=== PATIENT | female | born 1940 | race Caucasian/White ===

== ENCOUNTER 2016-10-23 07:29 | Emergency (ER) | payer MEDICARE, OTHER ==
[~2016-10-23] VITALS: Ht 160 cm; Wt 88.5 kg
[~2016-10-23 07:29] MED LIST: ASCO500T9 PO; ATEN25TA PO; CALC600T12 PO; CHOL200014 PO; CRAN300T PO; CYAN250010 PO; LECI400C4 PO; MULT1CAP32 PO; OLOP5DRO BOTH EYES; OMEG1CAP79 PO; RANI150T7 PO; VITA400T9 PO
[2016-10-23 07:31] VITALS: Ht 160 cm; Wt 88.5 kg
--- NOTE | 2016-10-23 07:42 | NUR ---
PROVIDER DR. GOODMAN IN ROOM WITH PT.
--- OUTSIDE RECORDS SUMMARY | 2016-10-23 07:42 | XMS REPORT | Continuity of Care Document ---
Author Author [facility] LIVE Organization [facility] LIVE Address Unknown Phone Unavailable Support Name Relationship Address Phone TERRANCE LORENZANA MD Caregiver [address] [facility] [place] [phone] GEORGIA NELSON MD Caregiver [address] [place] [phone] AMBREEN GONZALES Next Of Kin [address] [place] [address] Insurance Providers Payer Name Policy Number Subscriber Name Relationship Medicare [id number] Melisa Gonzales 20 Self [employer] [id number] Melisa Gonzales 20 Self Advance Directives Directive Response Recorded Date/Time Advanced Directives Type DNR Documentation 03/22/14 1:45am Problems Medical Problems Problem Onset Date Status Chest discomfort Unknown Active Vertigo Unknown Active GERD (gastroesophageal reflux disease) Unknown Active Medications Medication Dose Route Sig Days/Qty Instructions Order Date Discontinued Date Status Cyanocobalamin 1,000 Mcg PO DAILY 09/05/09 09/12/10 Discontinued Calcium Carbonate 600 Mg PO DAILY 09/05/09 09/12/10 Discontinued Omeprazole 20 Mg PO BEFORE BREAKFAST Take 1 capsule, by mouth, one time a day (before 03/22/14 Active Atenolol 1 Tab PO DAILY 03/22/14 Active Social History Social History Problem Response Recorded Date/Time Smoking Status Never smoker 03/22/2014 2:30am Chewing Tobacco Status No 03/22/2014 2:30am Hx Substance Use No 03/22/2014 2:30am Hx Alcohol Use No 03/22/2014 2:30am Query Response Start Date Stop Date Smoking Status Unknown if ever smoked Hospital Discharge Instructions No hospital discharge instructions. Plan of Care No plan of care. Functional Status Query Response Date Recorded Physical Hygiene Self March 22, 2014 2:30am Disabilities Visual March 22, 2014 2:30am Devices Used Dentures Glasses March 22, 2014 2:30am Dressing Self March 22, 2014 2:30am Ambulation Self March 22, 2014 2:30am Diet Self March 22, 2014 2:30am Mental Status Alert March 22, 2014 3:10am Disabilities Visual March 22, 2014 2:30am Devices Used Dentures Glasses March 22, 2014 2:30am Physical Hygiene Self March 22, 2014 2:30am Dressing Self March 22, 2014 2:30am Ambulation Self March 22, 2014 2:30am Diet Self March 22, 2014 2:30am Allergies, Adverse Reactions, Alerts Allergen Type Severity Reaction Status Last Updated Penicillin Allergy Unknown Active 03/22/14 Cephalosporins Allergy Unknown Active 03/22/14 Sulfa (Sulfonamide Antibiotics) Allergy Unknown Active 03/22/14 Iodine Allergy Unknown Active 03/22/14 Immunizations Name Given Type Hx Influenza Vaccination Y fall 2012 Historical Hx Influenza Vaccination Y fall 2012 Historical Vital Signs Acute Vital Signs Vital Response Date/Time Temperature (Fahrenheit) 98.2 deg F (96.8 - 99.1) Temperature (Calculated Celsius) 36.32190 degrees C (36.0 - 37.3) Pulse Rate (adult) 88 bpm (60 - 100) Respiratory Rate 16 breaths/min (10 - 20) O2 Sat by Pulse Oximetry 96 % (90 - 100) Blood Pressure 124/59 mm Hg Height 5 ft 3 in Weight 209 lb Body Mass Index 37.0 kg/m^2 Results Test Source Date Result Interp. Ref. Range Comments Activated Partial Thromboplast Time March 22, 2014 2:05am 33.5 SEC N 24 -36 Alanine Aminotransferase (ALT/SGPT) March 22, 2014 2:05am 31 U/L N 9- 52 Albumin March 22, 2014 2:05am 3.9 G/DL N 3.5-5.0 Albumin/Globulin Ratio March 22, 2014 2:05am 1.3 RATIO N 1.1-2.2 Alkaline Phosphatase March 22, 2014 2:05am 103 U/L N 38-126 Anion Gap March 22, 2014 2:05am 12 MEQ/L N 5-15 Aspartate Amino Transf (AST/SGOT) March 22, 2014 2:05am 25 U/L N 14-36 BUN/Creatinine Ratio March 22, 2014 2:05am 24 RATIO N 6-26 Basophils # (Auto) March 22, 2014 2:05am 0.1 T/MM3 N 0-0.2 Basophils (%) (Auto) March 22, 2014 2:05am 0.6 % N 0-2 Blood Urea Nitrogen March 22, 2014 2:05am 26.0 MG/DL H 7-17 Calcium Level March 22, 2014 2:05am 9.2 MG/DL N 8.4-10.2 Calculated Osmolality March 22, 2014 2:05am 276 MOSM/KG N 261-280 Carbon Dioxide Level March 22, 2014 2:05am 26 MEQ/L N 22-30 Chloride Level March 22, 2014 2:05am 102 MEQ/L N 98-107 Clostridium Difficile Toxin A & B September 05, 2009 3:50am Positive - Has specimen been collected/obtained? Y Creatine Kinase MB May 10, 2013 1:39pm 0.8 NG/ML N 0-3.4 Creatinine March 22, 2014 2:05am 1.1 MG/DL N 0.7-1.2 Eosinophils # (Auto) March 22, 2014 2:05am 0.3 T/MM3 N 0-0.5 Eosinophils (%) (Auto) March 22, 2014 2:05am 2.7 % N 0-4 Giardia Antigen September 05, 2009 12:00pm Ref lab rpt scanned - --- 09/08/09 1409 ---GIARD previously reported as: SENT OUT Globulin March 22, 2014 2:05am 3.1 G/DL N 2.4-3.6 Glucose Level March 22, 2014 2:05am 133 MG/DL H 65-110 Hematocrit March 22, 2014 2:05am 40.2 % N 36-46 Hemoglobin March 22, 2014 2:05am 13.3 GM/DL N 12-16 Influenza Type A Antigen September 12, 2010 10:05am Negative - Negative for Flu A protein antigen. Assay sensitivity isbetween 65-83%. A negative result does not exclude influenza virus infection. "Influenza FA" may be ordered if clinical presentation warrants confirmatory testing. Influenza Type B Antigen September 12, 2010 10:05am Negative - Negative for Flu B protein antigen. Assay sensitivity isbetween 65-83%. A negative result does not exclude influenza virus infection. "Influenza FA" may be ordered if clinical presentation warrants confirmatory testing. Lipase May 09, 2013 11:40pm 115 U/L N 23-300 Lymphocytes # (Auto) March 22, 2014 2:05am 3.1 T/MM3 N 1-4.8 Lymphocytes (%) (Auto) March 22, 2014 2:05am 32.5 % N 23-45 Magnesium Level March 22, 2014 2:05am 1.7 MG/DL N 1.6-2.3 Mean Corpuscular Hemoglobin March 22, 2014 2:05am 28.7 UUG N 26-34 Mean Corpuscular Hemoglobin Concent March 22, 2014 2:05am 33.1 GM/DL N 31-37 Mean Corpuscular Volume March 22, 2014 2:05am 86.6 UM3 N 80-100 Mean Platelet Volume March 22, 2014 2:05am 9.3 UM3 L 9.4-12.4 Monocytes # (Auto) March 22, 2014 2:05am 0.8 T/MM3 N 0-0.8 Monocytes (%) (Auto) March 22, 2014 2:05am 7.9 % N 0-9.0 Neutrophils # (Auto) March 22, 2014 2:05am 5.4 T/MM3 N 1.8-7.7 Neutrophils (%) (Auto) March 22, 2014 2:05am 56.1 % N 33-66 Ova and Parasites (LAB) September 05, 2009 12:00pm Ref lab rpt scanned - --- 09/08/09 1409 ---OAP previously reported as: SENT OUT Platelet Count March 22, 2014 2:05am 245 T/MM3 N 130-400 Potassium Level March 22, 2014 2:05am 4.1 MEQ/L N 3.6-5 Prothromb Time International Ratio March 22, 2014 2:05am 0.97 N 0.81- 1.09 THERAPUTIC RANGE=2.00-3.00 FOR ANTI-THROMBOSIS THERAPUTIC RANGE=2.50- 3.50 FOR IMPLANTED VALVE RDW Standard Deviation March 22, 2014 2:05am 41.8 FL N 36.9-50.2 Red Blood Count March 22, 2014 2:05am 4.64 M/MM3 N 4.00-5.20 Sodium Level March 22, 2014 2:05am 140 MEQ/L N 134-144 Stool for White Cells September 05, 2009 3:50am Positive - Has specimen been collected/obtained? Y Tests Not Done September 05, 2009 3:00am Not done - Has specimen been collected/obtained? Y Thyroid Stimulating Hormone (TSH) March 22, 2014 2:05am 2.61 MIU/L N 0.47-4.68 Total Bilirubin March 22, 2014 2:05am 1.10 MG/DL N 0.20-1.30 Total Creatine Kinase May 10, 2013 1:39pm 80 U/L N 30-135 Total Protein March 22, 2014 2:05am 7.0 G/DL N 6.3-8.2 Troponin I March 22, 2014 2:05am < 0.012 ng/ml 0-0.12 Urine Bacteria January 07, 2009 9:10am Trace - Urine Bilirubin March 03, 2012 10:30am Negative - Urine Blood March 03, 2012 10:30am Negative - Urine Collection Type March 03, 2012 10:30am Voided - Urine Color March 03, 2012 10:30am Yellow - Urine Glucose (UA) March 03, 2012 10:30am Negative - Urine Ketones March 03, 2012 10:30am Negative - Urine Leukocyte Esterase March 03, 2012 10:30am Negative - Urine Nitrite March 03, 2012 10:30am Negative - Urine Protein March 03, 2012 10:30am Negative - Urine RBC March 03, 2012 10:30am None seen /HPF - Urine Specific Walker March 03, 2012 10:30am 1.005 L - Urine Squamous Epithelial Cells January 07, 2009 9:10am Moderate - Urine Turbidity March 03, 2012 10:30am Clear - Urine Urobilinogen March 03, 2012 10:30am Normal EU/DL - Urine WBC March 03, 2012 10:30am 0-1 /HPF - Urine pH March 03, 2012 10:30am 6.5 - White Blood Count March 22, 2014 2:05am 9.6 T/MM3 N 4.5-11.0 Chemistry Specimen Hemolysis March 22, 2014 2:05am < 15 0-25 0-25: No Hemolysis.26-70: Slight Hemolysis - can falsely elevate K and Urine Protein. 71-285: Moderate Hemolysis - can falsely elevate K, Troponin I, CA 19-9, PTH, CSF GLucose, and Urine Protein, and can falsely decrease Phenytoin. 286-999: Gross Hemolysis - can falsely elevate K, Troponin I, CA 19-9, PTH, CSF Glucose, and Urine Protine, and can falsely decrease Phenytoin. Recommend specimen recollection. Lab Scanned Report May 10, 2013 6:43pm LAB TEST FORM REQUEST [id number] - Turbidity March 22, 2014 2:05am < 20 0-20 Glomerular Filtration Rate Calc March 22, 2014 2:05am 49 - Immature Granulocyte # (Auto) March 22, 2014 2:05am 0.02 T/MM3 N 0.00- 0.03 Immature Granulocyte % (Auto) March 22, 2014 2:05am 0.2 % N 0.0-0.5 Icterus Index March 22, 2014 2:05am < 2 0-7 TR-Kiw-X-Type Natriuretic Peptide March 22, 2014 2:05am 63 PG/ML N 0- 175 Rule in cut points: <50 years old=450; 50-75 years old=900; >75 years old=1800; When utilizing ProBNP rule-in cut points, adjustment for impaired renal function is typically not required. Urine Microscopic Not Indicated May 31, 2011 4:40pm Not indicated - Stool Culture Stool September 05, 2009 3:50am Procedures No known history of procedures. Encounters Encounter Location Date/Time Departed Emergency Room [facility] 03/22/14 1:43am Recent Diagnosis
--- OUTSIDE RECORDS SUMMARY | 2016-10-23 07:42 | XMS REPORT | Continuity of Care Document ---
Author Author Trish Hong Trish Address Unknown Phone Unavailable Care Team Providers Care Correctional Guard Name Role Phone [employer] Unavailable Unavailable Problems Medications Allergies, Adverse Reactions, Alerts Immunizations Results Vital Signs Encounters Procedures Plan of Care Social History Assessment and Plan Family History Value Date Source Advance Directives Order Name Results Value Date Source
--- NOTE | 2016-10-23 07:55 | NUR ---
LAB LAB IN ROOM WITH PT.
--- NOTE | 2016-10-23 08:00 | NUR ---
CT PT TO CT.
[2016-10-23 08:01] LABS: BASOPHILS % (AUTO) 0.5 % (0-2); EOSINOPHILS # (AUTO) 0.2 T/MM3 (0-0.5); HCT - HEMATOCRIT 39.6 % (36-46); HGB - HEMOGLOBIN 12.9 GM/DL (12-16); LYMPHOCYTES # (AUTO) 1.7 T/MM3 (1-4.8); LYMPHOCYTES % (AUTO) 22.8 % (23-45); MEAN CORPUSCULAR HGB 29.3 UUG (26-34); MEAN CORPUSCULAR HGB CONC(MCHC 32.6 GM/DL (31-37); MEAN PLATELET VOLUME 9.1 UM3 (9.4-12.4); MONOCYTES # (AUTO) 0.6 T/MM3 (0-0.8); MONOCYTES % (AUTO) 7.8 % (0-9.0); NEUTROPHILS #(AUTO)-ABSOLUTE 4.8 T/MM3 (1.8-7.7); NEUTROPHILS % (AUTO) 65.9 % (33-66); WBC - WHITE BLOOD COUNT 7.3 T/MM3 (4.5-11.0)
[2016-10-23 08:02] LABS: BLOOD, URINE NEGATIVE (NEGATIVE); COLOR,URINE YELLOW (YELLOW); LEUKOCYTE ESTERASE ,URINE NEGATIVE (NEGATIVE); NITRITE,URINE NEGATIVE (NEGATIVE); UROBILINOGEN,URINE 0.2 EU/DL (NORMAL)
[2016-10-23 08:10] LABS: ALBUMIN 3.6 G/DL (3.5-5.0); ALBUMIN/GLOBULIN RATIO 1.1 RATIO (1.1-2.2); ALKALINE PHOSPHATASE 71 U/L (38-126); ALT (SGPT) 32 U/L (9-52); ANION GAP 10 MEQ/L (5-15); AST (SGOT) 24 U/L (14-36); BUN/CREATININE RATIO 28 RATIO (6-26); CALCIUM 9.1 MG/DL (8.4-10.2); CHLORIDE 105 MEQ/L (98-107); CO2 - CARBON DIOXIDE 28 MEQ/L (22-30); CREATININE 0.9 MG/DL (0.7-1.2); GLOMERULAR FILTRATION RATE 61; GLUCOSE 121 MG/DL (65-110); LIPASE 96 U/L (23-300); POTASSIUM 4.6 MEQ/L (3.6-5); SODIUM 143 MEQ/L (134-144); TOTAL PROTEIN 6.9 G/DL (6.3-8.2)
--- NOTE | 2016-10-23 08:16 | NUR ---
RADIOLOGY PT FROM RADIOLOGY PER CART
--- NOTE | 2016-10-23 08:23 | ERPDOC ---
Departure Disposition Decision Date: Oct 23, 2016 Disposition Decision Time: 08:49 Disposition: 01 DISCHARGED HOME, SELF-CARE Impression Impression Impression: Primary Impression: Sciatica Laterality: left Qualified Codes: M54.32 - Sciatica, left side Severity: Mild Condition: Improved Seen By: Physician only Referrals: NATALIYA ROY MD (Family) 2 Days Patient Instructions: Sciatica (ED) Problems/Meds/Labs Reviewed?: Yes Medications reviewed and manag: Yes Follow up care ordered?: Yes Mental Status: Alert, Oriented Scripts Cyclobenzaprine HCl (Cyclobenzaprine HCl) 10 Mg Tablet 5 MG PO TID Y for MUSCLE SPASM for 5 Days, #15 TAB 0 Refills Prov: NATO GOODMAN DO 10/23/16 Hydrocodone/Acetaminophen (Granville 5-325 Tablet) 5-325 Tablet 1 TAB PO Q4HR Y for PAIN for 3 Days, #18 TAB 0 Refills Prov: NATO GOODMAN DO 10/23/16 HPI - Back Pain General Chief Complaint: Low Back Pain or Injury Stated Complaint: LEFT SIDE ABD PAIN ( PT ONLY HAS ONE KIDNEY) Time Seen by Provider: 07:35 Source: patient Exam Limitations: no limitations HPI - Back Pain Initial Comments 75-year-old female presents to the emergency department with a chief complaint of left lower back pain. Patient has been lifting moving boxes and lifting her who is disabled for the past month. Patient noted onset of pain one week ago. Symptoms have been gradual in nature since onset. Pain is sharp. Pain is moderate. Pain radiates down the patient's left leg. Patient denies any other injury or trauma. Patient was at home when her symptoms began. Symptoms have been persistent in nature since onset. No other complaints or associated symptoms. Pain is easily reproducible with movement and improves with rest and positioning. Patient denies any numbness, tingling, fever, chills, saddle anesthesia, anticoagulation, loss of bowel or bladder control, abdominal pain, recent procedures on the back, IV drug abuse, focal weakness or other warning signs of back pain. Occurred At: home Onset/Timing: Gradual Allergies: Coded Allergies: Cephalosporins (Verified Allergy, Unknown, 10/23/16) Penicillins (Verified Allergy, Unknown, 10/23/16) Sulfa (Sulfonamide Antibiotics) (Verified Allergy, Unknown, 10/23/16) iodine (Verified Allergy, Unknown, 10/23/16) hydromorphone (Verified Adverse Reaction, Unknown, loopy, 10/23/16) Past History Past Medical History Metabolic: cancer, hypertension Cardiac: CAD, FL GI: GERD, ulcers Musculoskeletal: osteoarthritis Surgical History General: appendix, gallbladder, other Cardiac: cardiac cath Reproductive/: hysterectomy Family History Family History: Negative Vaccines Hx Influenza Vaccination: Yes (fall 2012) Social History Smoking Status: Never smoker Substance Use Type: does not use Alcohol Intake: none Sexuality: male partner Review of Systems Constitutional Constitutional: DENIES: chills, fever Eyes General: DENIES: erythema, exudate Lids/Accessories: DENIES: erythema, swelling Vision: DENIES: acuity, blurring ENMT Ears: DENIES: drainage, pain Hearing: DENIES: hearing loss Balance: DENIES: ataxia, falling to one side Sinuses: DENIES: congestion, pain Nose: DENIES: nosebleeds, pain Mouth/Throat: DENIES: painful swallowing, sore throat Teeth: DENIES: pain Jaw: DENIES: pain Cardiovascular Cardiac: DENIES: chest pain, dyspnea on exertion Rhythm/Rate: DENIES: irregular beat, palpitations Vascular: DENIES: pedal edema, unilateral swelling Pulmonary Respiratory: DENIES: cough, dyspnea, pleuritic chest pain, sputum GI Upper Abdomen: DENIES: nausea, pain, vomiting Lower Abdomen: DENIES: diarrhea, pain General: DENIES: dysuria, pain Musculoskeletal General: tenderness, DENIES: joint pain Integumentary Skin: DENIES: itching, rash Neurological General: DENIES: headache, numbness, weakness Psychiatric Psychiatric: DENIES: emotional instability, suicidal ideation/attempt Endocrine Endocrine: DENIES: polydipsia, polyphagia Hematologic/Lymphatic Hematologic/Lymphatic: DENIES: frequent nosebleeds, lymphadenopathy Allergic/Immunological Allergic/Immunoligical: DENIES: allergic reactions, hives Physical Exam General General Nourishment: well nourished, well developed, appears stated age, no acute distress, adult General Body Habitus: well groomed Vitals and Pain First Documented Vital Signs Date Time Temp Pulse Resp B/P Pulse Ox O2 Delivery O2 Flow Rate FiO2 10/23/16 07:31 98.1 87 14 153/60 95 Room Air Weight: Kilograms: 88.500 Height (feet): 5 Height (inches): 3.00 Triage Pain Scale: RN VS reviewed by Provider: Yes Normal Exams: Head: Normocephalic w/o trauma Eyes: Pupils are PERRLA w/ EOMI, No scleral icterus, irritation, or foreign bodies noted ENMT: No facial trauma, nasal exudates, pharyngeal erythema, or exudates are noted Dental: No fractured, loose, or missing teeth noted Neck: Full range of motion, without adenopathy, JVD, bruits or thyromegaly Chest/Resp: Clear all durpee, with good airflow, and symmetry bilaterally CV: Regular rate and rhythm, without murmur or gallop, Pulses 2+ all extremities, capillary refill, <2 seconds all ext., no pedal edema noted Abdomen: Bowel sounds positive, soft, non-tender, non-distended, no hepatosplenomegaly, masses or bruits noted Lymphatic: No lymphadenopathy, or lymphedema noted Musculoskeletal: No tenderness, or deformity noted, good range of motion, all extremities Integumentary: No rashes, hives, or bruising noted, hair and nails, without abnormality Neurologic: Patient is alert, and oriented, cranial nerves, motor/sensory/ cerebellar, exams w/o gross deficits, to observation Psychiatric: Patient exhibits, appropriate attention, emotion and affect Musculoskeletal (brief) Comments Back - full range of motion. No midline tenderness or deformity. Positive tender to palpation over the left SI Joint. Neurologic (brief) Comments Alert and oriented x 4. CN 2-12 intact. Sensation intact. Strength normal. Normal motor. Normal gait. Normal coordination. Normal speech. Absent Babinski bilaterally. Reflexes 2/4 in all extremities. No focal neurologic deficits Differential Diagnoses Considering: Fracture, Lumbar Sprain, Lumbar Strain, Other (sciatica) Progress Results/Orders Orders Procedure Category Date Status Time Cbc W/Auto LAB 10/23/16 Complete Diff-Reflex Manual Cmp - Comprehensive LAB 10/23/16 Complete Metabolic Lipase LAB 10/23/16 Complete Ua, Dip Wreflex LAB 10/23/16 Complete Microsc & Recruiter Manager 07:48 Ct Renal W/O Contrast CT 10/23/16 Taken 07:48 Hydrocodone/Acetaminophen PHA 10/23/16 Complete (Granville 5/325) 09:00 Lab Results Laboratory Tests Test 10/23/16 07:57 White Blood Count 7.3T/MM3 Red Blood Count 4.40M/MM3 Hemoglobin 12.9GM/DL Hematocrit 39.6% Mean Corpuscular Volume 90.0UM3 Mean Corpuscular Hemoglobin 29.3UUG Mean Corpuscular Hemoglobin Concent 32.6GM/DL RDW Standard Deviation 43.2FL Platelet Count 207T/MM3 Mean Platelet Volume 9.1UM3 Immature Granulocyte % (Auto) 0.0% Neutrophils (%) (Auto) 65.9% Lymphocytes (%) (Auto) 22.8% Monocytes (%) (Auto) 7.8% Eosinophils (%) (Auto) 3.0% Basophils (%) (Auto) 0.5% Absolute Immature Granulocyte (auto 0.00T/MM3 Absolute Neutrophils (auto) 4.8T/MM3 Absolute Lymphocytes (auto) 1.7T/MM3 Absolute Monocytes (auto) 0.6T/MM3 Absolute Eosinophils (auto) 0.2T/MM3 Absolute Basophils (auto) 0.0T/MM3 Urine Collection Type Cleancatch-midstream Urine Color Yellow Urine Turbidity Clear Urine pH 6.0 Urine Specific Whitman 1.010 Urine Protein Negative Urine Glucose (UA) Negative Urine Ketones Negative Urine Blood Negative Urine Nitrite Negative Urine Bilirubin Negative Urine Urobilinogen 0.2EU/DL Urine Leukocyte Esterase Negative Urinalysis Comment Microscopic not ind. Turbidity < 20 Sodium Level 143MEQ/L Potassium Level 4.6MEQ/L Chloride Level 105MEQ/L Carbon Dioxide Level 28MEQ/L Anion Gap 10MEQ/L Blood Urea Nitrogen 25.0MG/DL Creatinine 0.9MG/DL Glomerular Filtration Rate Calc 61 BUN/Creatinine Ratio 28RATIO Glucose Level 121MG/DL Calculated Osmolality 280MOSM/KG Calcium Level 9.1MG/DL Total Bilirubin 0.80MG/DL Icterus Index < 2 Aspartate Amino Transf (AST/SGOT) 24U/L Alanine Aminotransferase (ALT/SGPT) 32U/L Alkaline Phosphatase 71U/L Total Protein 6.9G/DL Albumin 3.6G/DL Globulin 3.3G/DL Albumin/Globulin Ratio 1.1RATIO Lipase 96U/L Chemistry Specimen Hemolysis < 15 Medications Current ED Medications Acetaminophen/ Hydrocodone Bitart ([place] 5/325) 1 tab O ONCE PO Last administered on 10/23/16t 08:56; Start 10/23/16 at 09:00; Stop 10/23/16 at 09:02 ; Status DC Progress Progress Labs/imaging were discussed in detail with the patient and questions are answered. Patient declines offered IV hydration in the emergency department stating that she would prefer to encourage by mouth intake of water at home. Patient is given analgesic pain medication with improvement of symptoms in the emergency Department. Patient is discharged home in improved condition. Patient is to follow up as instructed. Patient is to return to the emergency Department if her condition worsens or changes in any manner. Patient is in agreement with the current plan of management. Patient's to follow-up as instructed. Prescriptions for 5 mg of Granville and 5 mg of Flexeril are provided. Steroids and nonsteroidal anti-inflammatories are avoided due to the patient' s history of 1 kidney. EKG EKG : Interpreted by: signing physician EKG Comments EKG - declined by patient. CT CT : CT: Abd/Pelvis no contrast Interpretation: Normal (mild left hydronephrosis without significant left hydroureter or calculus. Unremarkable bony structures except for degenerative changes. No acute processes.), Faxed Report NATO GOODMAN DO Oct 23, 2016 08:22 NATO GOODMAN DO Oct 23, 2016 08:22
[2016-10-23] MEDS ORDERED: CYCL-375 PO (08:51)
[2016-10-23] MEDS ORDERED: HYDR-4246 PO (08:51)
[2016-10-23 09:00] VITALS: BP 156/68; PULSE 68; RESP 17; TEMP 97.8; O2SAT 97
[2016-10-23] MEDS ORDERED: HYDROCODONE/APAP 5 mg/325 mg TABLET PO ONE (09:00)
--- NOTE | 2016-10-24 09:53 | DI ---
Indication: ITS.REASON: L sided low back pain, hx nephrectomy PROCEDURE: CT RENAL W/O CONTRAST: Encounter: Initial Comparison: Renal ultrasound dated May 27, 2015 Technique: Axial CT images were performed through the abdomen and pelvis without intravenous contrast. Coronal and sagittal two-dimensional reformats. Automated Exposure Control and Iterative Reconstruction dose reducing techniques were utilized. Findings: Mild atelectasis or scarring in the lung bases. The unenhanced liver is unremarkable. Gallbladder is surgically absent. The spleen, pancreas and adrenal glands are within normal limits. Right kidney is surgically absent. Left kidney shows moderate hydronephrosis without evidence of obstructing renal or ureteral stone. Bladder is normal. Uterus is absent. No free fluid or bowel obstruction. Colonic diverticulosis without evidence of acute diverticulitis. Bone windows show degenerative change and scoliosis in the spine. Impression: New moderate left hydronephrosis with a solitary kidney. Urologic consultation is recommended. There is a preliminary report by [facility]. .
== END 2016-10-23 09:00 | disposition home or self-care (01) ==
LOC: ED 07:29
DX: M54.42 Lumbago with sciatica, left side (principal)
CPT/HCPCS: 36415; 74176; 80053; 81003; 83690; 85025; 99284; A9270

== ENCOUNTER 2016-12-17 19:37 | Emergency (ER) | payer MEDICARE, OTHER ==
[~2016-12-17] VITALS: Ht 160 cm; Wt 82.8 kg
[~2016-12-17 19:37] MED LIST changes: +CYCL-375 PO; +HYDR-4246 PO
[2016-12-17 19:40] VITALS: Ht 160 cm; Wt 82.8 kg
--- OUTSIDE RECORDS SUMMARY | 2016-12-17 19:40 | XMS REPORT | Continuity of Care Document ---
Author Author [facility] LIVE Organization [facility] LIVE Address Unknown Phone Unavailable Support Name Relationship Address Phone TERRANCE LORENZANA MD Caregiver [address] [place] [phone] GEORGIA NELSON MD Caregiver [address] [place] [phone] AMBREEN GONZALES Next Of Kin [address] [place] [address] Insurance Providers Payer Name Policy Number Subscriber Name Relationship Medicare [id number] Melsia Gonzales 20 Self [facility] Ret[employer] [id number] Melisa Gonzales 20 Self Advance Directives Directive [...] F (96.8 - 99.1) Temperature (Calculated Celsius) 36.94667 degrees C (36.0 - 37.3) Pulse Rate [...] 10:30am None seen /HPF - Urine Specific [place] March 03, 2012 10:30am 1.005 L - [...] 10, 2013 6:43pm LAB TEST FORM REQUEST [id number] - Turbidity March 22, 2014 2:05am < 20 0-20 Glomerular Filtration Rate Calc March 22, 2014 2:05am 49 - Immature Granulocyte # (Auto) March 22, 2014 2:05am 0.02 T/MM3 N 0.00- 0.03 Immature Granulocyte % (Auto) March 22, 2014 2:05am 0.2 % N 0.0-0.5 Icterus Index March 22, 2014 2:05am < 2 0-7 IQ-Qxo-B-Type Natriuretic Peptide March 22, 2014 2:05am 63 [...] Encounters Encounter Location Date/Time Departed Emergency Room [facility] 03/22/14 1:43am Recent Diagnosis
--- OUTSIDE RECORDS SUMMARY | 2016-12-17 19:40 | XMS REPORT | Continuity of Care Document ---
Author Author Trish Hong Trish Address Unknown Phone Unavailable Care Team Providers Care Roving Tester Laboratory Name Role Phone [employer] Unavailable Unavailable Problems Medications Allergies, Adverse Reactions, Alerts Immunizations Results Vital Signs Encounters Procedures Plan of Care Social History Assessment and Plan Family History Value Date Source Advance Directives Order Name Results Value Date Source
--- OUTSIDE RECORDS SUMMARY | 2016-12-17 19:40 | XMS REPORT | Continuity of Care Document ---
Author Author [facility] Organization [facility] Address Unknown Phone Unavailable Support Name Relationship Address Phone NATALIYA ROY MD Caregiver [address] [address] Unavailable NATO GOODMAN DO Caregiver [address] [place] [address] Unavailable AMBREEN GONZALES Next Of Kin [address] [place] [address] Insurance Providers Guarantor Melisa Gonzales Address [address] [place] [address] Email [email or web address] Payer Medicare Policy Number [id number] Subscriber's Name Melisa Gonzales Relationship 18 Self Effective Date 07 [facility] [employer] Policy Number [id number] Subscriber's Name Melisa Gonzales Relationship 18 Self Group Number [id number] Advance Directives Directive Response Recorded Date/Time Advanced Directives Type None 10/23/16 7:31am Chief Complaint and Reason for Visit Chief Complaint Low Back Pain or Injury Reason for Visit Sciatica Problems Active Problems Medical Problem Onset Date Status Chest discomfort Unknown Acute GERD (gastroesophageal reflux disease) Unknown Acute GERD (gastroesophageal reflux disease) Unknown Acute Vertigo Unknown Acute Visual distortion Unknown Acute Past Problems Medical Problem Onset Date Sciatica Unknown Medications Current Home Medications Medication Dose Units Route Directions Days Qty Instructions Start Date Ascorbic Acid (Vitamin C) 500 Mg Tablet 1 Tab Oral Daily 05/13/15 Atenolol 25 Mg Tablet 1 Tab Oral Daily 03/22/14 Calcium Carbonate (Calcium) 600 Mg Tablet 1 Tab Oral Twice A Day 05/13/15 Cholecalciferol (Vitamin D3) (Vitamin D3) 2,000 Unit Tablet 1 Tab Oral Daily 05/13/15 Cranberry Extract (Cranberry) 300 Mg Tablet 1 Tab Oral Daily Cyanocobalamin (Vitamin B-12) (Vitamin B12) 2,500 Mcg Tablet 2 Tab Oral Daily 05/13/15 Cyclobenzaprine Hcl 10 Mg Tablet 5 Mg Oral Three Times A Day as needed for Muscle Spasm 5 Days 15 Tablet 10/23/16 Hydrocodone/Acetaminophen ([place] 5-325 Tablet) 5-325 Tablet 1 Tab Oral Every 4 Hours as needed for Pain 3 Days 18 Tablet 10/23/16 Lecithin, Soy (Lecithin) 400 Mg Capsule 1 Cap Oral Daily 05/13/15 Multivitamin (Multivitamins) 1 Each Capsule 1 Cap Oral Daily Olopatadine Hcl (Patanol) 50 Drop/5 Ml Drops 1 Drop Both Eyes As Needed as needed for Red Eyes 05/13/15 [place]-3/Dha/Epa/Fish Oil (Fish Oil 1,000 Mg Softgel) 1 Each Capsule 1 Cap Oral Twice A Week 1 05/13/15 Ranitidine Hcl 150 Mg Tablet 1 Tab Oral Bedtime 05/13/15 Vitamin E Mixed (Vitamin E) 400 Unit Tablet 1 Tab Oral Weekly Past Home Medications Medication Directions Ordered Status Calcium Carbonate (Calcium) 600 Mg Tablet, 600 Mg Oral Daily 09/05/09 Discontinued Cyanocobalamin (Vitamin B-12) 1,000 Mcg Lozenge, 1000 Mcg Oral Daily Discontinued Social History Social History Problem Response Recorded Date/Time Onset Date Status Chewing Tobacco Status No 10/23/2016 7:49am Not Applicable Not Applicable Hx Substance Use No 10/23/2016 7:49am Not Applicable Not Applicable Hx Alcohol Use No 10/23/2016 7:49am Not Applicable Not Applicable Tobacco Usage none 03/25/2014 10:02am Not Applicable Not Applicable Query Response Start Date Stop Date Smoking Status Current every day smoker Hospital Discharge Instructions No hospital discharge instructions. Plan of Care Discharge Date 10/23/16 9:00am Disposition 01 DISCHARGED HOME, SELF-CARE Condition at Discharge Improved Instructions/Education Provided Sciatica (ED) Prescriptions See Medication Section Referrals NATALIYA ROY MD Order Date: 2 Days Address: [address] [place] [address] [place] [address] Note: Care Plan and Goals Physician Care Plan Problem: Sciatica Goal: Follow up with primary care provider Instructions: Take medications and follow care plan as discussed/written Functional Status No functional status results. Allergies, Adverse Reactions, Alerts Allergen Type Severity Reaction Status Last Updated Penicillin Allergy Unknown Active 10/23/16 Cephalosporins Allergy Unknown Active 10/23/16 Sulfa (Sulfonamide Antibiotics) Allergy Unknown Active 10/23/16 Iodine Allergy Unknown Active 10/23/16 Hydromorphone Adverse Reaction Unknown loopy Active 10/23/16 Immunizations Query Response on File Recorded Date/Time Hx Influenza Vaccination Y fall 201203/22/14 2:30am Hx Influenza Vaccination Y fall 201203/22/14 2:30am Influenza Vaccine Hx 201510/23/16 7:49am Pneumococcal PCV13 Vaccine Hx 03/24/15 05/13/15 11:30am Vital Signs Acute Vital Signs Vital Response Date/Time Temperature (Fahrenheit) 97.8 deg F (96.8 - 99.1) 10/23/2016 9:00am Temperature (Calculated Celsius) 36.25821 degrees C (36.0 - 37.3) 10/23/2016 9:00am Pulse Rate (adult) 68 bpm (60 - 100) 10/23/2016 9:00am Respiratory Rate 17 breaths/min (10 - 20) 10/23/2016 9:00am O2 Sat by Pulse Oximetry 97 % (90 - 100) 10/23/2016 9:00am Blood Pressure 156/68 mm Hg 10/23/2016 9:00am Height (Feet) 5 feet 10/23/2016 7:31am Height (Inches) 3.00 inches 10/23/2016 7:31am Weight (Kilograms) 88.500 kg 10/23/2016 7:31am Body Mass Index (BMI) 34.0 10/23/2016 7:31am Results Laboratory Results Test Name Result Units Flags Reference Collection Date/Time Result Date/ Time Comments White Blood Count 7.3 T/MM3 4.5-11.0 10/23/2016 7:57am 10/23/2016 8: 01am Red Blood Count 4.40 M/MM3 4.00-5.20 10/23/2016 7:57am 10/23/2016 8: 01am Hemoglobin 12.9 GM/DL 12-16 10/23/2016 7:57am 10/23/2016 8:01am Hematocrit 39.6 % 36-46 10/23/2016 7:57am 10/23/2016 8:01am Mean Corpuscular Volume 90.0 UM3 80-100 10/23/2016 7:57am 10/23/2016 8: 01am Mean Corpuscular Hemoglobin 29.3 UUG 26-34 10/23/2016 7:57am 2016 8:01am Mean Corpuscular Hemoglobin Concent 32.6 GM/DL 31-37 10/23/2016 7:57am 10/23/2016 8:01am RDW Standard Deviation 43.2 FL 36.9-50.2 10/23/2016 7:57am 10/23/2016 8 :01am Platelet Count 207 T/MM3 130-400 10/23/2016 7:57am 10/23/2016 8:01am Mean Platelet Volume 9.1 UM3 L 9.4-12.4 10/23/2016 7:57am 10/23/2016 8: 01am Neutrophils (%) (Auto) 65.9 % 33-66 10/23/2016 7:57am 10/23/2016 8: 01am Lymphocytes (%) (Auto) 22.8 % L 23-45 10/23/2016 7:57am 10/23/2016 8: 01am Monocytes (%) (Auto) 7.8 % 0-9.0 10/23/2016 7:57am 10/23/2016 8:01am Eosinophils (%) (Auto) 3.0 % 0-4 10/23/2016 7:57am 10/23/2016 8:01am Basophils (%) (Auto) 0.5 % 0-2 10/23/2016 7:57am 10/23/2016 8:01am Immature Granulocyte % (Auto) 0.0 % 0.0-0.5 10/23/2016 7:57am 2016 8:01am Absolute Neutrophils (auto) 4.8 T/MM3 1.8-7.7 10/23/2016 7:57am 2016 8:01am Absolute Lymphocytes (auto) 1.7 T/MM3 1-4.8 10/23/2016 7:57am 2016 8:01am Absolute Monocytes (auto) 0.6 T/MM3 0-0.8 10/23/2016 7:57am 10/23/2016 8:01am Absolute Eosinophils (auto) 0.2 T/MM3 0-0.5 10/23/2016 7:57am 2016 8:01am Absolute Basophils (auto) 0.0 T/MM3 0-0.2 10/23/2016 7:57am 10/23/2016 8:01am Absolute Immature Granulocyte (auto 0.00 T/MM3 0.00-0.03 10/23/2016 7: 57am 10/23/2016 8:01am Icterus Index < 2 0-7 10/23/2016 7:57am 10/23/2016 8:10am Chemistry Specimen Hemolysis < 15 0-25 10/23/2016 7:57am 10/23/2016 8 :10am 0-25: Specimen Exhibited No Hemolysis. Turbidity < 20 0-20 10/23/2016 7:57am 10/23/2016 8:10am Sodium Level 143 MEQ/L 134-144 10/23/2016 7:57am 10/23/2016 8:10am Potassium Level 4.6 MEQ/L 3.6-5 10/23/2016 7:57am 10/23/2016 8:10am Chloride Level 105 MEQ/L 98-107 10/23/2016 7:57am 10/23/2016 8:10am Carbon Dioxide Level 28 MEQ/L 22-30 10/23/2016 7:57am 10/23/2016 8: 10am Anion Gap 10 MEQ/L 5-15 10/23/2016 7:57am 10/23/2016 8:10am Blood Urea Nitrogen 25.0 MG/DL H 7-17 10/23/2016 7:57am 10/23/2016 8: 10am Creatinine 0.9 MG/DL 0.7-1.2 10/23/2016 7:57am 10/23/2016 8:10am BUN/Creatinine Ratio 28 RATIO H 6-10/23/2016 7:57am 10/23/2016 8: 10am Glomerular Filtration Rate Calc 61 10/23/2016 7:57am 10/23/2016 8: 10am Glucose Level 121 MG/DL H 65-110 10/23/2016 7:57am 10/23/2016 8:10am Calculated Osmolality 280 MOSM/KG 261-280 10/23/2016 7:57am 10/23/2016 8:10am Calcium Level 9.1 MG/DL 8.4-10.2 10/23/2016 7:57am 10/23/2016 8:10am Total Bilirubin 0.80 MG/DL 0.20-1.30 10/23/2016 7:57am 10/23/2016 8: 10am Alkaline Phosphatase 71 U/L 38-126 10/23/2016 7:57am 10/23/2016 8:10am Total Protein 6.9 G/DL 6.3-8.2 10/23/2016 7:57am 10/23/2016 8:10am Albumin 3.6 G/DL 3.5-5.0 10/23/2016 7:57am 10/23/2016 8:10am Globulin 3.3 G/DL 2.4-3.6 10/23/2016 7:57am 10/23/2016 8:10am Albumin/Globulin Ratio 1.1 RATIO 1.1-2.2 10/23/2016 7:57am 10/23/2016 8 :10am Aspartate Amino Transf (AST/SGOT) 24 U/L 14-36 10/23/2016 7:57am 2016 8:10am Alanine Aminotransferase (ALT/SGPT) 32 U/L 9-52 10/23/2016 7:57am 10/23 8:10am Lipase 96 U/L 23-300 10/23/2016 7:57am 10/23/2016 8:10am Urine Collection Type CLEANCATCH-MIDSTREAM 10/23/2016 7:57am 2016 8:02am Urine Color YELLOW YELLOW 10/23/2016 7:57am 10/23/2016 8:02am Urine Turbidity CLEAR CLEAR 10/23/2016 7:57am 10/23/2016 8:02am Urine Specific [place] 1.010 L 1.015-1.025 10/23/2016 7:57am 2016 8:02am Urine pH 6.0 5.0-8.0 10/23/2016 7:57am 10/23/2016 8:02am Urine Leukocyte Esterase NEGATIVE NEGATIVE 10/23/2016 7:57am 2016 8:02am Urine Nitrite NEGATIVE NEGATIVE 10/23/2016 7:57am 10/23/2016 8:02am Urine Protein NEGATIVE NEGATIVE 10/23/2016 7:57am 10/23/2016 8:02am Urine Glucose (UA) NEGATIVE NEGATIVE 10/23/2016 7:57am 10/23/2016 8: 02am Urine Ketones NEGATIVE NEGATIVE 10/23/2016 7:57am 10/23/2016 8:02am Urine Urobilinogen 0.2 EU/DL NORMAL 10/23/2016 7:57am 10/23/2016 8: 02am Urine Bilirubin NEGATIVE NEGATIVE 10/23/2016 7:57am 10/23/2016 8: 02am Urine Blood NEGATIVE NEGATIVE 10/23/2016 7:57am 10/23/2016 8:02am Urinalysis Comment MICROSCOPIC NOT IND. 10/23/2016 7:57am 2016 8:02am Procedures No known history of procedures. Encounters Encounter Location Arrival/Admit Date Discharge/Depart Date Attending Provider Departed Emergency Room [facility] 10/23/16 7:29am 10/23/16 9: 00am NATO GOODMAN DO Recent Diagnosis
[2016-12-17] MEDS ORDERED: ASPI81TA2 PO (19:55)
--- NOTE | 2016-12-17 19:55 | NUR ---
CT Patient out to CT
[2016-12-17] MEDS ORDERED: CITA20TA9 PO (19:59)
[2016-12-17] MEDS ORDERED: LOSA50TA52 PO (19:59)
[2016-12-17] MEDS ORDERED: FLUT9.9S NAS (20:00)
[2016-12-17] MEDS ORDERED: PANT20TA13 PO (20:00)
--- NOTE | 2016-12-17 20:02 | ERPDOC ---
Departure Disposition Decision Date: December 17, 2016 Disposition Decision Time: 22:07 Disposition: 01 DISCHARGED HOME, SELF-CARE Impression Impression Impression: Primary Impression: Fall Encounter type: initial encounter Qualified Codes: W19.XXXA - Unspecified fall, initial encounter Additional Impression: Head injury Encounter type: initial encounter Qualified Codes: S09.90XA - Unspecified injury of head, initial encounter Severity: Moderate Condition: Stable Seen By: Mid-level only Referrals: NATALIYA ROY MD (Family) Patient Instructions: Head Injury (ED) Problems/Meds/Labs Reviewed?: Yes Medications reviewed and manag: Yes Additional Instructions: Your CT of your head and neck today are normal. Xray of your hip are normal as well. I do expect that you will have some increased soreness over the next 1-2 days. Follow up with your primary care provider or return to ER with any further concerns. Follow up care ordered?: Yes Mental Status: Alert HPI - Fall/Injury General Chief Complaint: Fall Stated Complaint: FELL Time Seen by Provider: 19:41 Source: patient Exam Limitations: no limitations HPI - Fall/Injury Initial Comments She was in her basement this evening and was standing on a plastic lawn chair. There was a large spider on the wall and she was going to try to kill it. She lost her balance and fell backwards. Landed on her buttocks and hit her head. She did not have any LOC. She does arrive per EMS with c collar in place and on long back board. She is alert and oriented. Is having some low back pain and neck pain at this time. Occurred At: home Onset: Rapid Duration: 1 hr Severity: moderate Injuries/Pain Location: head, neck Context: lost balance, slipped Loss of Consciousness: no loss of consciousness Associated Symptoms: neck pain, DENIES: abdominal pain, chest pain, confusion, dizziness, headache, lightheadedness, muscle spasms, nausea/vomiting, ringing in ears, seizures, shortness of breath, slurred speech, trouble walking, vision changes Hx of Similar Symptoms: No Allergies: Coded Allergies: Cephalosporins (Verified Allergy, Unknown, 12/17/16) Penicillins (Verified Allergy, Unknown, 12/17/16) Sulfa (Sulfonamide Antibiotics) (Verified Allergy, Unknown, 12/17/16) clindamycin (Verified Allergy, Unknown, 12/17/16) iodine (Verified Allergy, Unknown, 12/17/16) codeine (Verified Adverse Reaction, Intermediate, VOMITTING, 12/17/16) cyclobenzaprine (Verified Adverse Reaction, Intermediate, "KNOCKS ME OUT" , 12/17/16) hydromorphone (Verified Adverse Reaction, Unknown, loopy, 12/17/16) Past History Past Medical History Metabolic: cancer, hypertension Cardiac: CAD, DE GI: GERD, ulcers Musculoskeletal: osteoarthritis Surgical History General: appendix, gallbladder, other Cardiac: cardiac cath Reproductive/: hysterectomy Family History Family History: Negative Vaccines Hx Influenza Vaccination: Yes (fall 2012) Social History Smoking Status: Never smoker Substance Use Type: does not use Alcohol Intake: none Sexuality: male partner Review of Systems Constitutional Constitutional: DENIES: chills, dizziness, fatigue, fever, weakness Eyes Vision: DENIES: blurring, double vision ENMT Ears: DENIES: drainage, pain Sinuses: DENIES: congestion, rhinorrhea Mouth/Throat: DENIES: scratchy throat, sore throat Cardiovascular Cardiac: DENIES: chest pain, orthopnea Rhythm/Rate: DENIES: irregular beat, palpitations Pulmonary Respiratory: DENIES: cough, dyspnea, sputum, tachypnea GI Upper Abdomen: DENIES: nausea, pain, vomiting Lower Abdomen: DENIES: constipation, diarrhea, pain Integumentary Skin: DENIES: rash Neurological General: headache, DENIES: numbness, tingling, weakness Physical Exam General General Nourishment: well nourished, well developed, appears stated age, no acute distress, adult General Body Habitus: well groomed Vitals and Pain First Documented Vital Signs Date Time Temp Pulse Resp B/P Pulse Ox O2 Delivery O2 Flow Rate FiO2 12/17/16 19:40 98.9 72 16 149/66 94 Room Air Weight: Kilograms: Height (feet): 5 Height (inches): 3.00 Triage Pain Scale: RN VS reviewed by Provider: Yes Normal Exams: Eyes: Pupils are PERRLA w/ EOMI, No scleral icterus, irritation, or foreign bodies noted ENMT: No facial trauma, nasal exudates, pharyngeal erythema, or exudates are noted Chest/Resp: Clear all dupree, with good airflow, and symmetry bilaterally CV: Regular rate and rhythm, without murmur or gallop, Pulses 2+ all extremities, capillary refill, <2 seconds all ext., no pedal edema noted Abdomen: Bowel sounds positive, soft, non-tender, non-distended, no hepatosplenomegaly, masses or bruits noted Lymphatic: No lymphadenopathy, or lymphedema noted Integumentary: No rashes, hives, or bruising noted Neurologic: Patient is alert, and oriented, cranial nerves, motor/sensory/ cerebellar, exams w/o gross deficits, to observation Psychiatric: Patient exhibits, appropriate attention, emotion and affect Musculoskeletal (brief) Musculoskeletal Brief: FOUND: tenderness (Moderate TTP along the right lateral trochanter and the right anterior pelvis.) Differential Diagnoses Considering: Concussion, Contusion, Dislocation, Fracture Progress Results/Orders Orders Procedure Category Date Status Time Ct Head W/O Contrast CT 12/17/[address] Cervical Spine W/O CT 12/17/16 Taken Contrast Pelvis W/1 View Rt Hip RAD 12/17/[address] scan of head and neck today were normal. Xray today is negative. Will have her monitor her pain at home. I do expect that she will be more sore over the next few days. CT CT #1: Reason for Exam: fall, head injury CT: Head no contrast Interpretation: Normal CT #2: Reason for Exam: fall, neck pain CT: C-Spine no contrast Interpretation: Normal REJI DAWKINS APRN December 17, 2016 20:02
[2016-12-17] MEDS ORDERED: CRAN1TAB6 PO (20:03)
[2016-12-17] MEDS ORDERED: OMEG300C PO (20:05)
[2016-12-17] MEDS ORDERED: [UNRECOGNIZED DRUG - OTHER] PO (20:06)
[2016-12-17] MEDS ORDERED: ALPH600C7 PO (20:06)
[2016-12-17] MEDS ORDERED: [UNRECOGNIZED DRUG - CODE] PO (20:07)
[2016-12-17] MEDS ORDERED: OLOP5DRO BOTH EYES (20:08)
--- NOTE | 2016-12-17 20:10 | NUR ---
CT Patient returns
[2016-12-17] MEDS ORDERED: LORA10TA7 PO (20:18)
--- OUTSIDE RECORDS SUMMARY | 2016-12-17 20:23 | XMS REPORT | Continuity of Care Document ---
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
--- OUTSIDE RECORDS SUMMARY | 2016-12-17 20:23 | XMS REPORT | Continuity of Care Document ---
Author Author [facility] Organization [facility] Address Unknown Phone Unavailable Support Name Relationship Address Phone TERRANCE LORENZANA MD Caregiver [address] [phone] GEORGIA NELSON MD Caregiver [address] [place] [phone] AMBREEN GONZALES Next Of Kin [address] [place] [address] Insurance Providers Payer Name Policy Number Subscriber Name Relationship Medicare [id number] Melisa Gonzales 20 Self [facility] Ret[employer]nt [id number] Melisa Gonzales 20 Self Advance Directives Directive [...] F (96.8 - 99.1) Temperature (Calculated Celsius) 36.23727 degrees C (36.0 - 37.3) Pulse Rate [...] 10:30am None seen /HPF - Urine Specific [place] March 03, 2012 10:30am 1.005 L - [...] 10, 2013 6:43pm LAB TEST FORM REQUEST [id number] - Turbidity March 22, 2014 2:05am < 20 0-20 Glomerular Filtration Rate Calc March 22, 2014 2:05am 49 - Immature Granulocyte # (Auto) March 22, 2014 2:05am 0.02 T/MM3 N 0.00- 0.03 Immature Granulocyte % (Auto) March 22, 2014 2:05am 0.2 % N 0.0-0.5 Icterus Index March 22, 2014 2:05am < 2 0-7 [id number] Natriuretic Peptide March 22, 2014 2:05am 63 [...] Encounters Encounter Location Date/Time Departed Emergency Room [facility] 03/22/14 1:43am Recent Diagnosis
[2016-12-17 22:20] VITALS: BP 131/65; PULSE 69; RESP 16; TEMP 98.9; O2SAT 96
--- NOTE | 2016-12-19 12:08 | DI ---
Indication: ITS.REASON: fall, head injury PROCEDURE: CT HEAD W/O CONTRAST: Encounter: Initial Comparison: May 13, 2015 Technique: Axial CT images through the head were performed without contrast. Iterative Reconstruction dose reducing technique was utilized. FINDINGS: The ventricles are of normal size, shape, and configuration for the patient's age. There is no evidence of acute intracranial hemorrhage, midline displacement, or mass effect. There are scattered areas of low attenuation in the white matter which most likely represent changes of chronic microvascular ischemia. The CT attenuation of the brain parenchyma is otherwise normal within the cerebellum, brain stem, and cerebral hemispheres. The tympanic cavities and mastoid air cells are free of appreciable disease. There are no definite fractures of the skull base, calvarium, or visualized portion of the midface. IMPRESSION: No CT evidence of acute traumatic intracranial injury. There is a preliminary report by virtual radi[employer]. .
--- NOTE | 2016-12-19 12:09 | DI ---
Indication: ITS.REASON: fall, neck pain PROCEDURE: CT CERVICAL SPINE W/O CONTRAST: Encounter: Initial Comparison: None Technique: Axial CT images through the cervical spine were performed without contrast. Coronal and sagittal reformatted images were also obtained. Automated Exposure Control and Iterative Reconstruction dose reducing techniques were utilized. FINDINGS: The alignment of the cervical spine is normal. Multilevel degenerative changes are present. There is no evidence of acute fracture or subluxation of the cervical spine. The atlantoaxial articulation, dens, and upper cervical spine demonstrate no subluxation. The paraspinal soft tissues and spinal canal appear unremarkable. IMPRESSION: No acute traumatic abnormality of the cervical spine. There is a preliminary report by [facility]. .
--- NOTE | 2016-12-19 13:04 | DI ---
Indication: ITS.REASON: right hip pain PROCEDURE: PELVIS W/1 VIEW RT HIP: Encounter: Initial Comparison: None Findings: There is no acute fracture, dislocation or malalignment identified. Impression: No acute osseous abnormality. .
== END 2016-12-17 22:20 | disposition home or self-care (01) ==
LOC: ED 19:37
DX: S09.90XA Unspecified injury of head, initial encounter (principal); M54.2 Cervicalgia; M54.5 Low back pain; M25.551 Pain in right hip; R10.2 Pelvic and perineal pain; W17.89XA Other fall from one level to another, initial encounter; Y93.89 Activity, other specified; Y92.018 Other place in single-family (private) house as the place of occurrence of the external cause; Y99.8 Other external cause status